=== PATIENT | male | born 1990 | race Caucasian/White ===

== ENCOUNTER 2021-10-27 16:58 | Emergency (ER) | payer OTHER ==
[~2021-10-27] VITALS: Ht 177.8 cm; Wt 74.8 kg
--- NOTE | 2021-10-27 17:12 | NUR ---
Dr Lawrence examined and evaluated the pt.
[2021-10-27 17:23] VITALS: BP 128/77
--- NOTE | 2021-10-27 17:23 | NUR ---
Patient given written and verbal discharge instructions. Patient verbalizes understanding of instructions. Patient is ambulatory with steady gait. Refuses offer of senior living placement. Patient given list of available shelters in surrounding area.
== END 2021-10-27 17:24 | disposition home or self-care (01) ==
LOC: ER 16:58
DX: D17.1 Benign lipomatous neoplasm of skin and subcutaneous tissue of trunk (principal); F19.10 Other psychoactive substance abuse, uncomplicated; F11.20 Opioid dependence, uncomplicated; Z59.00 Homelessness unspecified
CPT/HCPCS: A4663